=== PATIENT | female | born 1960 | race American Indian/Alaskan Native ===

== ENCOUNTER 2018-05-24 16:27 | Observation (INO) | payer MEDICARE, BC ==
[~2018-05-24] VITALS: Ht 162.6 cm; Wt 77.4 kg
--- NOTE | 2018-05-24 17:40 | NUR ---
RCD PT BY DIRECT ADMISSION PT IS ALERT AND ORIENTED VITALS CHECKED PT RESTING ON BED NO SIGNS OF ANY DISTRESS NOTED ADMISSION ASSESSMENT AND HISTORY DONE PT C/O PAIN ON LOWER BACK 04/22 ,INSTRUCTED PT REGARDING HOSPITAL POLICY AND ROUTINE BED LOW AND LOCKED CALL LIGHT IN REACH
[2018-05-24] MEDS ORDERED: SODIUM CHLORIDE 0.45% 1,000 ML IV SCH (17:45)
[2018-05-24] MEDS ORDERED: MEROPENEM 500MG/ NS 50ML 50 ML IV SCH (18:00)
[2018-05-24] MEDS ORDERED: MEROPENEM 500MG 500 MG in SODIUM CHLORIDE 0.9% 50ML 50 ML IV SCH (18:00)
--- NOTE | 2018-05-24 18:00 | NUR ---
PT REQUESTED ATTENDING PHYSICIAN NOTIFIED [employer]
[2018-05-24 18:02] VITALS: BP 133/76
[2018-05-24] MEDS ORDERED: LOSARTAN POTASS25 MG (18:04)
[2018-05-24] MEDS ORDERED: MONTELUKAST SOD10 MG PO (18:04)
[2018-05-24] MEDS ORDERED: LOVASTATIN20 MG (18:04)
[2018-05-24] MEDS ORDERED: CYMBALTA30 MG (18:04)
[2018-05-24] MEDS ORDERED: HYDROXYCHLOROQ200 MG PO (18:04)
[2018-05-24] MEDS ORDERED: NORVASC5 MG PO (18:04)
[2018-05-24] MEDS ORDERED: CARBAMAZEPINE200 MG PO (18:04)
[2018-05-24] MEDS ORDERED: MIRTAZAPINE15 MG PO (18:04)
[2018-05-24 19:13] VITALS: BP 133/76
[2018-05-24 19:29] LABS: BASOPHILS % 0.2 % (0.0-1.0); EOSINOPHILS # (AUTO) 0.6 (0.0-0.4); EOSINOPHILS % 7.1 % (0.0-6.0); HEMATOCRIT 33.7 % (34.2-44.1); HEMOGLOBIN 10.1 g/dL (12.0-16.0); LYMPHOCYTES # (AUTO) 1.2 (1.0-3.2); LYMPHOCYTES % 13.9 % (18.0-39.1); MEAN CORPUSCULAR HEMOGLOBIN 23.7 pg (28-32); MEAN CORPUSCULAR VOLUME 78.9 fL (81-99); MONOCYTES # (AUTO) 0.5 (0.2-0.8); MONOCYTES % 6.5 % (4.4-11.3); NEUTROPHILS % 71.9 % (38.7-80.0); PLATELET COUNT 410 x10e3/uL (140-360); RED BLOOD COUNT 4.27 x10e6/uL (3.6-5.1); RED CELL DISTRIBUTION WIDTH 16.5 % (11.7-14.4)
--- NOTE | 2018-05-24 19:31 | NUR ---
PT RESTING ON BED BED SIDE REPORT GIVEN TO ONCOMING NURSE
[2018-05-24] MEDS: SODIUM CHLORIDE 0.45% 1,000 ML IV SCH (19:39)
[2018-05-24] MEDS: MEROPENEM 500MG/ NS 50ML 50 ML IV SCH (19:39)
[2018-05-24] MEDS: HYDROCODONE/APAP 10MG-325MG TAB PO PRN (19:40)
[2018-05-24 19:52] LABS: ALANINE AMINOTRANSFERASE 21 IU/L (0-55); ALBUMIN/GLOBULIN RATIO 0.6 (0.8-2.0); ALKALINE PHOSPHATASE 242 IU/L (40-150); AMYLASE 85 U/L (25-125); ANION GAP 13.8 mmol/L (8-16); BLOOD UREA NITROGEN 14 mg/dL (7-26); BUN/CREATININE RATIO 17 (6-25); CALCIUM 9.4 mg/dL (8.4-10.2); CARBON DIOXIDE 27 mmol/L (22-29); CHLORIDE 103 mmol/L (98-107); CREATININE, SERUM 0.84 mg/dL (0.57-1.11); EST GLOMERULAR FILTRATION RATE > 60 ML/MIN (60-); GLUCOSE 95 mg/dL (74-118); LIPASE 32 U/L (8-78); POTASSIUM 3.8 mmol/L (3.5-5.1); SODIUM 140 mmol/L (136-145)
[2018-05-24 20:00] VITALS: BP 142/85
--- NOTE | 2018-05-24 20:00 | NUR ---
patient requesting different attending, patient does not want s poly, requesting taj as attending. Spoke to warehouse pricing and inventory clerk, call placed to dr vang. dr vang will accept patient. attending changed in system.
[2018-05-24 20:01] LABS: ERYTHROCYTE SEDIMENTATION RATE 62 mm/hr (0-20)
[2018-05-24 20:51] VITALS: BP 142/85
[2018-05-24] MEDS ORDERED: HYDROXYCHLOROQUINE SULFATE 200 MG TAB PO SCH (21:00)
[2018-05-24] MEDS ORDERED: AMLODIPINE BESYLATE 5 MG TAB PO SCH (21:00)
[2018-05-24] MEDS: AMLODIPINE BESYLATE 10 MG TAB PO SCH (21:10)
[2018-05-24] MEDS: DULOXETINE HCL 30 MG DELAYED RELEASE PO SCH (21:10)
[2018-05-24] MEDS: LOSARTAN POTASSIUM 25 MG TAB PO SCH (21:10)
[2018-05-24] MEDS: MONTELUKAST SODIUM 10 MG TAB PO SCH (21:11)
[2018-05-24] MEDS: MIRTAZAPINE 15 MG TAB PO SCH (21:11)
[2018-05-24] MEDS: CARBAMAZEPINE 200 MG TAB PO SCH (21:11)
[2018-05-24] MEDS ORDERED: ASPIRIN81 MG PO (21:18)
[2018-05-25] VITALS (8 sets, daily range): BP systolic 114–139; BP diastolic 66–87
[2018-05-25] MEDS: HYDROCODONE/APAP 10MG-325MG TAB PO PRN ×3 (03:55→17:38)
[2018-05-25] MEDS: MEROPENEM 500MG/ NS 50ML 50 ML IV SCH ×3 (03:55→21:00)
[2018-05-25 04:03] LABS: BILIRUBIN,URINE NEGATIVE (NEGATIVE); CLARITY,URINE CLEAR (CLEAR); COLOR,URINE YELLOW (YELLOW); KETONES,URINE NEGATIVE (NEGATIVE); LEUKOCYTE ESTERASE ,URINE NEGATIVE (NEGATIVE); NITRITE,URINE NEGATIVE (NEGATIVE); URINE UROBILINOGEN 0.2 mg/dL (0.2 - 1)
[2018-05-25 04:04] LABS: PROTEIN,URINE DIPSTICK 1+ (NEGATIVE)
[2018-05-25 04:06] LABS: EPITHELIAL CELLS,URINE MODERATE /LPF; RBC,URINE 0-5 /HPF (0-5); WBC,URINE (MAN) 0-5 /HPF (0-5)
[2018-05-25] MEDS ORDERED: CYANOCOBALAMIN INJ 1,000 MCG/ML VIAL IM ONE (05:30)
--- NOTE | 2018-05-25 07:05 | NUR ---
Received patient mid fowlers position, side rails upx2, call light within reach. AAOX4 to time, person, place, situation. Respirations even and unlabored. Dressing to right juan alberto cath with dry dressing and medfix tape. Informed patient of special dressings for juan alberto cath for infection control. Patient states "I always use this type of dressing due to my skin being sensitive. I have my dressing changed weekly. It was changed yesterday. I'll have you change it after I take a shower, anyway the dressing is clean."Instructed to use call light for assistance. Voiced understanding.
[2018-05-25 07:11] LABS: BASOPHILS % 0.3 % (0.0-1.0); EOSINOPHILS # (AUTO) 0.7 (0.0-0.4); EOSINOPHILS % 9.8 % (0.0-6.0); HEMATOCRIT 32.7 % (34.2-44.1); HEMOGLOBIN 9.9 g/dL (12.0-16.0); LYMPHOCYTES # (AUTO) 1.5 (1.0-3.2); MEAN CORPUSCULAR HGB CONC 30.3 g/dL (31-35); MEAN CORPUSCULAR VOLUME 79.2 fL (81-99); MONOCYTES # (AUTO) 0.5 (0.2-0.8); MONOCYTES % 7.9 % (4.4-11.3); NEUTROPHILS # (AUTO) 4.1 (2.1-6.9); NEUTROPHILS % 59.7 % (38.7-80.0); PLATELET COUNT 393 x10e3/uL (140-360); RED BLOOD COUNT 4.13 x10e6/uL (3.6-5.1); RED CELL DISTRIBUTION WIDTH 16.4 % (11.7-14.4)
[2018-05-25 07:31] LABS: ALANINE AMINOTRANSFERASE 22 IU/L (0-55); ALBUMIN 2.4 g/dL (3.5-5.0); ALBUMIN/GLOBULIN RATIO 0.6 (0.8-2.0); ALKALINE PHOSPHATASE 207 IU/L (40-150); BLOOD UREA NITROGEN 15 mg/dL (7-26); BUN/CREATININE RATIO 22 (6-25); CARBON DIOXIDE 26 mmol/L (22-29); CHLORIDE 106 mmol/L (98-107); CREATININE, SERUM 0.69 mg/dL (0.57-1.11); EST GLOMERULAR FILTRATION RATE > 60 ML/MIN (60-); GLUCOSE 93 mg/dL (74-118); SODIUM 139 mmol/L (136-145)
[2018-05-25 07:45] LABS: CALCIUM 8.6 mg/dL (8.4-10.2)
[2018-05-25] MEDS: AMLODIPINE BESYLATE 10 MG TAB PO SCH ×2 (08:47→21:00)
[2018-05-25] MEDS: LOSARTAN POTASSIUM 25 MG TAB PO SCH ×2 (08:47→21:00)
[2018-05-25] MEDS: DULOXETINE HCL 30 MG DELAYED RELEASE PO SCH ×2 (08:47→21:00)
[2018-05-25] MEDS: CARBAMAZEPINE 200 MG TAB PO SCH (08:48)
[2018-05-25] MEDS ORDERED: CARBAMAZEPINE 200 MG TAB PO SCH (09:00)
[2018-05-25] MEDS ORDERED: HYDROXYCHLOROQUINE SULFATE 200 MG TAB PO SCH (09:00)
--- NOTE | 2018-05-25 11:04 | Diagnostic Imaging Report ---
EXAM: Renal Ultrasound INDICATION: Urinary tract infection. COMPARISON: None TECHNIQUE: Transverse and longitudinal images of the kidneys and bladder were obtained. FINDINGS: Right Kidney: Status post right nephrectomy. No evidence of mass in the nephrectomy bed. Left Kidney: Length: 11.1 cm Appearance: Normal echogenicity. Collecting system: No hydronephrosis Stones: None Cyst/Mass: None Bladder: Unremarkable in appearance. Left ureteral jet is present. IMPRESSION: Status post right nephrectomy. Unremarkable sonographic appearance of the left kidney. Signed by: Dr. Kei Drake MD on 05/25/2018 11:00 AM
[2018-05-25] MEDS ORDERED: [UNRECOGNIZED DRUG - OTHER] PO (15:18)
[2018-05-25] MEDS ORDERED: ESGIC PO PRN (15:30)
[2018-05-25] MEDS: METHYLPREDNISOLONE SOD SUCC 40 MG/ML VIAL 1ML IV SCH (16:23)
--- NOTE | 2018-05-25 19:05 | NUR ---
Report given to oncoming nurse. Resting in bed. No s/s of acute distress noted.
[2018-05-25] MEDS: HYDROXYCHLOROQUINE SULFATE 200 MG TAB PO SCH (21:00)
[2018-05-25] MEDS: MIRTAZAPINE 15 MG TAB PO SCH (21:00)
[2018-05-25] MEDS: LOVASTATIN 20 MG PO SCH (21:00)
[2018-05-25] MEDS: MONTELUKAST SODIUM 10 MG TAB PO SCH (21:00)
[2018-05-25] MEDS: ASPIRIN 81 MG CHEW TAB PO SCH (21:00)
[2018-05-25] MEDS: SODIUM CHLORIDE 0.45% 1,000 ML IV SCH (21:00)
[2018-05-25] MEDS: CARBAMAZEPINE 100 MG TAB PO SCH (21:00)
--- NOTE | 2018-05-25 22:39 | Consultation ---
DATE OF CONSULTATION: REASON FOR CONSULTATION: UTI and abdominal pain. HISTORY OF PRESENT ILLNESS: This patient who is a 58-year-old white female with history of UTI before, who has history of allergies to cephalexin, cephalosporin, ciprofloxacin, and Bactrim. The patient called my office couple of times saying that she is having fever and chills, left flank pain. Because of her allergies, we gave her meropenem and we have sent for urine culture and sensitivity. The patient called that her pain is worse, is mainly on the left slide. She is having nausea and vomiting and not feeling well, so I asked her to go the emergency room to be evaluated. The patient is being admitted. She is currently lying in bed, but she says she is having severe pain in the left flank, which is going around. She also felt feverish, nausea. She denies any history of frequency. She stated the pain comes and goes. Nothing seem to provoke it. The patient who is currently lying in bed was comfortable otherwise. PAST MEDICAL HISTORY: Significant for hypertension, history of UTI before. The patient has history of recurrent UTIs outpatient. She has been on several antibiotics before including Macrobid and gentamicin, most recently on meropenem several times. She also had antiphospholipid syndrome, Alex esophagus disease, gastroparesis, and scleroderma. ALLERGIES: BECAUSE OF HER ALLERGIES TO CIPRO, CEPHALOSPORIN AND SULFA DRUGS, IT HAS BEEN AN ISSUE. PAST SURGICAL HISTORY: , cholecystectomy, hysterectomy, hip replacement surgeries, also knee surgery and hip replacement. VACCINATIONS: Up-to-date. FAMILY HISTORY: Noncontributory. SOCIAL HISTORY: She is . No smoking, drug abuse, or alcohol abuse. REVIEW OF SYSTEMS: At the present time: GENERAL: She is feeling feverish and fatigued. HEENT: There is headache. No visual change or hearing changes. GI: There is no nausea, no vomiting, no diarrhea. CARDIAC: There is no arrhythmia or chest pain. NEURO: No seizure activity. SKIN: There are no other rashes. JOINTS: There is no erythema or edema, but she does have pain. All other systems within normal limit except for as mentioned above the pain on the left flank and headache. LABORATORY DATA: White count 6.82, hemoglobin 9.9, and hematocrit 32. Sodium 139, potassium 4.0, creatinine 0.6, albumin is 2.4. Her blood cultures and urine cultures still pending. The patient had a renal ultrasound which showed status post right nephrectomy, otherwise unremarkable on the left. The patient did have CT scan of the abdomen and pelvis as an outpatient. I was able to review the results. PHYSICAL EXAMINATION: GENERAL: She is currently alert, oriented, does not seem to be in acute distress. VITAL SIGNS: Stable. Afebrile. This admission, all are negative. HEENT: She is not icteric. NECK: Supple. CHEST: Clear bilateral. HEART: S1, S2. No S3, S4, or murmur. ABDOMEN: Soft. Bowel sounds present. No tenderness. EXTREMITIES: No edema. SKIN: There is no rash. LABORATORY DATA: The patient did have urine cultures as an outpatient, which showed she had Proteus mirabilis greater than 10 to the power of 5 and as mentioned above, she was given meropenem and this is day #3. IMPRESSION: Left side pain, etiology unclear. I was concerned about pyelonephritis, but so far she has no fever. Her urinalysis is unremarkable, but her blood cultures and urine culture are still pending. The patient continued to be on meropenem. The physical examination just showed localized tenderness which could be muscular, we will give her one dose of Solu-Medrol in the meantime for short period of time and then reassess that will help with the pain. Continue with meropenem if the cultures are negative, then discontinue. They will treat as if she has cystitis. We will reassess with you. We will follow with you. TIME SPENT: 60 minutes. MD SANG Rivera/MICHAEL /[id number]
[2018-05-26] VITALS (8 sets, daily range): BP systolic 121–159; BP diastolic 54–88
[2018-05-26] MEDS: MEROPENEM 500MG/ NS 50ML 50 ML IV SCH ×3 (03:47→20:18)
[2018-05-26] MEDS: HYDROCODONE/APAP 10MG-325MG TAB PO PRN ×2 (03:47→13:00)
[2018-05-26] MEDS: METHYLPREDNISOLONE SOD SUCC 40 MG/ML VIAL 1ML IV SCH ×2 (05:00→17:44)
--- NOTE | 2018-05-26 07:36 | Progress Note ---
DATE: SUBJECTIVE: This is a 58-year-old female, comes in with left-sided urinary tract infection and pyelonephritis. The patient continues to have pain in the left side. No fever. Continues to have some suprapubic abdominal pain too. OBJECTIVE: VITAL SIGNS: Temperature is 97.0, pulse of 75, blood pressure is 139/61, pulse oximetry of 95%. HEENT: Normocephalic, atraumatic. Pupils are reactive to light and accommodation. CVS: S1 and S2 normal. Regular rate and rhythm. ABDOMEN: Tender in the left side. Positive for left-sided CVA tenderness. EXTREMITIES: No clubbing. No cyanosis and/or no edema. The patient has been seen by Dr. Avendaño. The patient's laboratory values from yesterday show white count of 6.82, hemoglobin of 9.9, hematocrit of 32.7, platelet count is 393. No left shift present. Chemistry shows sodium of 139, potassium 4.0, BUN 15, creatinine 0.69, alkaline phosphatase 207, and the patient's C-reactive protein is pending. The patient's urine showed moderate epithelial cells, negative for nitrate, negative for ketones, and negative for leukocyte esterase. MICROBIOLOGY: No growth after 24 hours on blood culture. Urine culture is pending. ASSESSMENT: 1. Urinary tract infection with current IV antibiotics. Continue current IV antibiotics. ID is on consult. 2. Left-sided pain, questionable pyelonephritis in lieu of her urine being clean and the cultures have been negative. 3. History of antiphospholipid syndrome. Continue with medications. The patient is currently on Merrem IV q.6 and also she is on medications include methylprednisolone for antiphospholipid syndrome, losartan 25, hydroxychloroquine 200, duloxetine 120, mirtazapine 45. The patient's other assessments include neuropathy and chronic pain syndrome further. FURTHER RECOMMENDATION AND CLINICAL COURSE: The patient can be discharged home if ID deems its okay. The patient can continue on Merrem at home. Further recommendation and clinical course. We will continue to monitor the patient. We will continue all her home medications at this time. MD DEX Felix/MODL /[id number]
[2018-05-26] MEDS: LOSARTAN POTASSIUM 25 MG TAB PO SCH ×2 (08:51→20:20)
[2018-05-26] MEDS: CARBAMAZEPINE 100 MG TAB PO SCH ×2 (08:51→20:20)
--- NOTE | 2018-05-26 09:33 | NUR ---
Patient alert and responsive, VSS and denies any pains, rounds by ID PA and states patient will continue on abx at the moment but very unlikely costovertebral pain is of pyelonephritis origin, will continue to monitor. Call light within reach and will monitor.
[2018-05-26] MEDS: PHENAZOPYRIDINE HCL 100 MG TAB PO SCH ×2 (14:21→17:44)
--- NOTE | 2018-05-26 14:25 | NUR ---
Spoke with attending Dr. breen and orders for pyridium due to irritable bladder and frequent urge to urinate. Orders in place, Patient alert and responsive, medicated for pain and will monitor.
--- NOTE | 2018-05-26 19:20 | NUR ---
Patient received sitting up in bed. AAO x 4 . Patient had no c/o pain. Respirations even and non-labored. Fall precautions implemented. Patient instructed to call for assistance when needed. Call light within reach.
[2018-05-26] MEDS: MIRTAZAPINE 15 MG TAB PO SCH (20:20)
[2018-05-26] MEDS: AMLODIPINE BESYLATE 10 MG TAB PO SCH (20:20)
[2018-05-26] MEDS: HYDROXYCHLOROQUINE SULFATE 200 MG TAB PO SCH (20:20)
[2018-05-26] MEDS: ASPIRIN 81 MG CHEW TAB PO SCH (20:20)
[2018-05-26] MEDS: MONTELUKAST SODIUM 10 MG TAB PO SCH (20:20)
[2018-05-26] MEDS: DULOXETINE HCL 30 MG DELAYED RELEASE PO SCH (20:20)
[2018-05-26] MEDS: LOVASTATIN 20 MG PO SCH (21:00)
[2018-05-26] MEDS ORDERED: PHENAZOPYRIDINE HCL 100 MG TAB PO SCH (21:00)
[2018-05-27 00:51] VITALS: BP 104/72
[2018-05-27 04:00] VITALS: BP 122/77
[2018-05-27] MEDS: MEROPENEM 500MG/ NS 50ML 50 ML IV SCH ×2 (04:50→12:28)
[2018-05-27] MEDS: METHYLPREDNISOLONE SOD SUCC 40 MG/ML VIAL 1ML IV SCH ×2 (05:25→17:00)
--- NOTE | 2018-05-27 07:01 | NUR ---
Met with Dr. Israel and Gordon HALL this morning regarding [address] Israel stated pt can dc home if okay with ID, as they sent her here. Dr. Israel stated pt told him they were on home health IV antibiotics prior to coming in. Marilee HALL stated he spoke with Dr. Avendaño's LAND INSPECTOR yesterday regarding this, and LAND INSPECTOR told him he would check with Dr. Avendaño to see if pt could go home. Pt sleeping at this time when CM went in to speak with her. Pt not previously here at this facility, so no information regarding who her home health is. Will follow up with all involved regarding this in order to give pt a safe discharge when ID agrees.
--- NOTE | 2018-05-27 07:14 | NUR ---
Shift report given to oncoming nurse.
[2018-05-27 07:51] VITALS: BP 137/75
--- NOTE | 2018-05-27 08:21 | NUR ---
Patient alert and responsive, VSS and rounds by ANUJA Soto for Dr. Avendaño and checked with him on discharge plan, need for abx at home and duration and orders to resume home donte services.
[2018-05-27] MEDS: CARBAMAZEPINE 100 MG TAB PO SCH (09:00)
[2018-05-27] MEDS: PHENAZOPYRIDINE HCL 100 MG TAB PO SCH ×2 (09:00→12:28)
[2018-05-27] MEDS: LOSARTAN POTASSIUM 25 MG TAB PO SCH (09:00)
--- NOTE | 2018-05-27 10:46 | Progress Note ---
DATE: SUBJECTIVE: A 58-year-old female comes in with a questionable urinary tract infection. The patient was on Merrem. Culture has been so far negative. The patient's CVA tenderness is diminished in intensity. Currently, afebrile, no complaints except for the back pain, which is getting better in intensity. OBJECTIVE: VITAL SIGNS: Temperature is 96.4, pulse of 84, respirations of 18, and blood pressure is 122/77. HEENT: Normocephalic, atraumatic. Pupils are reactive to light and accommodation. CVS: S1 and S2 normal. Regular rate and rhythm. ABDOMEN: Nontender. Nondistended. Left-sided CVA tenderness present, but diminished. EXTREMITIES: No clubbing, no cyanosis, and no edema. MICROBIOLOGY: Urine cultures are preliminary and no growth in 18 and 24 hours. Blood cultures are negative. MEDICATIONS: The patient is on Solu-Medrol 40 mg, Merrem q.6, carbamazepine 100 mg twice a day, losartan 25 mg, hydroxychloroquine 200, amlodipine 10, mirtazapine 45, and hydrocodone as needed. ASSESSMENT AND PLAN: 1. Urinary tract infection on IV Merrem. 2. Left-sided pain, questionable pyelo versus associated symptoms of connective tissue disorder. 3. History of antiphospholipid syndrome. Continue with hydroxychloroquine and Solu-Medrol. 4. Hypertension. Continue on antihypertensive agents and hyperlipidemic agents. Further recommendation per clinical course. The patient at this time can be cleared to go home. Discharge will be dependent on Dr. Avendaño. MD DEX Felix/MODL /[id number]
[2018-05-27 11:02] VITALS: BP 137/75
[2018-05-27] MEDS: HYDROCODONE/APAP 10MG-325MG TAB PO PRN (11:15)
[2018-05-27 11:44] VITALS: BP 131/88
--- NOTE | 2018-05-27 12:47 | NUR ---
Patient scheduled for discharge with a reinstatement of homecare services. Patient receives RN services from [facility] and IV Infusion provided by [facility] via [facility]. Patient resides at home with his her and son. Patient has been receiving IV-antibiotics and knows how to administer the medication. Patient confirms she has enough medication to continue when she gets home. MATEO provided patient with ALOC and IMM. Both placed in chart and copies given to patient. MATEO contacted [facility] to inform them of patient's return home. Spoke with ISABEL Mccoy who will see patient tomorrow. MATEO to fax clinicals to [phone].
[2018-05-27] MEDS ORDERED: CYCLOBENZAPRINE5 MG PO (13:58)
[2018-05-27 15:48] VITALS: BP 151/80
--- NOTE | 2018-05-27 16:04 | NUR ---
Spoke with Dr. Israel and states patient will not need Solumedrol taper, and will not need prescription for Pyridium but prescription in chart for Flexeril. CM confirmed home health services will resume and waiting for confirmation of duration of Merrem infusion at home Will monitor.
--- NOTE | 2018-05-27 16:56 | NUR ---
Confirmed patient will contact Dr. Avendaño's office for infusion duration of Merrem at home. Provided patient with discharge summary, prescription, Patient states Port-A-Cath stays accessed and states she will pack when she gets home. Order per Dr. Israel to discharge patient.
[2018-05-28 20:27] VITALS: BP 97/52
[2018-05-29] VITALS: BP 108/58
--- NOTE | 2018-05-29 05:45 | Discharge Summary ---
DISCHARGE DIAGNOSES: 1. Urinary tract infection, who failed outpatient therapy. 2. Hypertension. 3. History of antiphospholipid syndrome. HISTORY OF PRESENT ILLNESS AND HOSPITAL COURSE: The patient is a lady, who presented with a urinary tract infection, who failed outpatient therapy with Dr. Avendaño, was brought in by Dr. Avendaño. She was then placed on IV meropenem, which helped significantly with tenderness in the flank area. She had no other complications throughout hospitalization, and once she was cleared by Dr. Avendaño, she was able to be discharged home. Ultrasound was unremarkable of the left kidney since she has had a nephrectomy on the right. She will follow up with Dr. Avendaño as an outpatient as well as with primary care physician. Please see hospital chart for full details. MD BETSY Matt/MICHAEL /[id number]
== END 2018-05-27 17:02 | disposition home health service (06) ==
LOC: INTOOBSV 17:09 → MED/SURG2 17:09
PROVIDERS: ADMIT Internal Medicine; ATTEND Internal Medicine
DX: N30.00 Acute cystitis without hematuria (principal); M34.9 Systemic sclerosis, unspecified; I10 Essential (primary) hypertension; K21.9 Gastro-esophageal reflux disease without esophagitis; Z82.49 Family history of ischemic heart disease and other diseases of the circulatory system; D64.9 Anemia, unspecified; D68.61 Antiphospholipid syndrome; Z90.5 Acquired absence of kidney; Z90.3 Acquired absence of stomach [part of]; R53.81 Other malaise; R10.32 Left lower quadrant pain; Z87.440 Personal history of urinary (tract) infections; Z88.1 Allergy status to other antibiotic agents; Z88.5 Allergy status to narcotic agent; Z88.2 Allergy status to sulfonamides; Z88.8 Allergy status to other drugs, medicaments and biological substances
CPT/HCPCS: 36415 ×2; 76770; 80053 ×2; 81001; 82150; 83690; 83735; 85025 ×2; 85651; 86140; 87040; 87086; G0378 ×4; J2920 ×3; J3420

== ENCOUNTER → 2021-06-23 | Outpatient (CLI) | payer MEDICARE, BC ==
[~2021-06-23] MED LIST: ASPIRIN81 MG PO; CARBAMAZEPINE200 MG PO; CYCLOBENZAPRINE5 MG PO; CYMBALTA30 MG; HYDROXYCHLOROQ200 MG PO; LOSARTAN POTASS25 MG; LOVASTATIN20 MG; MIRTAZAPINE15 MG PO; MONTELUKAST SOD10 MG PO; NORVASC5 MG PO; [UNRECOGNIZED DRUG - OTHER] PO
== END ==
LOC: DX 09:56
PROVIDERS: ATTEND Internal Medicine Gastroenterology
DX: R13.19 Other dysphagia (principal); Z20.822 Contact with and (suspected) exposure to COVID-19
CPT/HCPCS: 74220; U0002

== ENCOUNTER 2022-08-03 18:37 | Emergency (ER) | payer MEDICARE, BC ==
[~2022-08-03] VITALS: Ht 162.6 cm; Wt 77.1 kg
[2022-08-03 19:42] LABS: BASOPHILS % 0.6 % (0.0-1.0); EOSINOPHILS % 0.5 % (0.0-6.0); HEMATOCRIT 34.4 % (34.2-44.1); HEMOGLOBIN 10.6 g/dL (12.0-16.0); LYMPHOCYTES # (AUTO) 1.2 (1.0-3.2); LYMPHOCYTES % 17.8 % (18.0-39.1); MEAN CORPUSCULAR HEMOGLOBIN 26.8 pg (28-32); MEAN CORPUSCULAR HGB CONC 30.8 g/dL (31-35); MEAN CORPUSCULAR VOLUME 87.1 fL (81-99); MONOCYTES # (AUTO) 0.3 (0.2-0.8); MONOCYTES % 4.6 % (4.4-11.3); NEUTROPHILS % 76.3 % (38.7-80.0); PLATELET COUNT 364 x10e3/uL (140-360); RED BLOOD COUNT 3.95 x10e6/uL (3.6-5.1); RED CELL DISTRIBUTION WIDTH 17.4 % (11.7-14.4)
[2022-08-03 20:01] LABS: ALBUMIN/GLOBULIN RATIO 0.7 (0.8-2.0); ANION GAP 11.9 mmol/L (8-16); CALCIUM 7.6 mg/dL (8.4-10.2); CREATININE, SERUM 0.59 mg/dL (0.57-1.11)
[2022-08-03 20:05] LABS: POTASSIUM 2.9 mmol/L (3.5-5.1)
[2022-08-03] MEDS ORDERED: POTASSIUM CHLORIDE 20 MEQ TAB CR PO STA (20:06)
[2022-08-03] MEDS ORDERED: POTASSIUM CHLORIDE 20MEQ/100ML 200 ML IV ONE (20:15)
[2022-08-03] MEDS ORDERED: SODIUM CHLORIDE 0.9% 250ML 250 ML ONE (21:19)
[2022-08-04 03:00] VITALS: BP 117/61; PULSE 97; RESP 16; TEMP 98.9; O2SAT 100
== END 2022-08-04 03:10 | disposition home or self-care (01) ==
LOC: ER 18:46
DX: E87.6 Hypokalemia (principal); I10 Essential (primary) hypertension
CPT/HCPCS: 36415; 71045; 80053; 85025; 99284; J3480; J7050